=== PATIENT | female | born 1985 | race Caucasian/White ===

== ENCOUNTER 2023-08-04 17:00 | Inpatient (IN) | payer OTHER ==
[2023-08-04 18:33] VITALS: BMI 35.6
[2023-08-04 20:49] LABS: BASO % 0.5 % (0-2.0); EOS % 0.6 % (0-4.5); HEMATOCRIT 34.6 % (32.4-45.2); HEMOGLOBIN 11.2 GM/dL (10.7-15.3); LYMPH % 19.7 % (8-40); MCH 26.5 pg (25.7-33.7); MCHC 32.3 g/dl (32.0-36.0); MEAN CELL VOLUME 82.1 fl (80-96); MEAN PLT VOLUME 9.1 fl (7.5-11.1); MONO % 7.8 % (3.8-10.2); NEUT % 71.4 % (42.8-82.8); PLATELET COUNT 275 10^3/uL (134-434); RBC 4.22 M/mm3 (3.60-5.2); RDW 15.3 % (11.6-15.6); WHITE BLOOD COUNT 8.7 K/mm3 (4.0-10.0)
[2023-08-04] MEDS: LACTATED RINGERS SOLUTION 1,000 ML/1,000 ML INFUS.BAG IV SCH (21:00)
[2023-08-04 21:07] LABS: INR 1.11 (0.83-1.09); PROTHROMBIN TIME (PATIENT) 12.5 SEC (9.7-13.0)
[2023-08-04 21:10] LABS: ACTIVATED PTT 25.7 SECONDS (25.2-36.5)
[2023-08-04 21:13] LABS: POTASSIUM 3.9 mmol/L (3.5-5.1)
[2023-08-04 21:15] LABS: BLOOD UREA NITROGEN 7.5 mg/dL (7-18); CALCIUM 8.6 mg/dL (8.5-10.1)
[2023-08-04 21:19] LABS: CREATININE 0.6 mg/dL (0.55-1.3)
[2023-08-04] MEDS: DINOPROSTONE 10 MG VAGINAL SUPPOSITORY VG ONE (21:20)
[2023-08-05] MEDS ORDERED: PROMETHAZINE HCL 25 MG/1 ML VIAL ONE (04:29)
[2023-08-05] MEDS ORDERED: BUTORPHANOL TARTRATE 2 MG/ML VIAL ONE (04:29)
[2023-08-05] MEDS: PROMETHAZINE HCL 25 MG/1 ML VIAL IVPB ONE (04:35)
[2023-08-05] MEDS: BUTORPHANOL TARTRATE 2 MG/ML VIAL IVPB ONE (04:35)
[2023-08-05] MEDS ORDERED: OXYTOCIN 20 UNITS in 0.9% NS 20 UNIT/1,000 ML INFUS.BAG IV ONE (06:32)
[2023-08-05] MEDS: OXYTOCIN 20 UNITS in 0.9% NS 20 UNIT/1,000 ML INFUS.BAG IV SCH (07:00)
[2023-08-05 07:13] LABS: CORD BASE EXCESS -2.7 mmol/L (0-2); CORD HCO3 26.5 mmHg (20-29); CORD PCO2 62.5 mmHg (30-78); CORD pH 7.246 (7.14-7.44)
[2023-08-05 07:16] LABS: CORD BASE EXCESS -2.8 mmol/L (0-2); CORD PCO2 38.9 mmHg (30-78); CORD pH 7.371 (7.14-7.44)
[2023-08-05] MEDS ORDERED: WITCH HAZEL 50% (TUCKS) 40 PAD/JAR PAD TP PRN (07:41)
[2023-08-05] MEDS ORDERED: BISACODYL 10 MG SUPP.RECT RC PRN (07:41)
[2023-08-05] MEDS ORDERED: METHYLERGONOVINE MALEATE 0.2 MG/1 ML AMP IM PRN (07:41)
[2023-08-05] MEDS ORDERED: BENZOCAINE 28 GM HEMORRHOIDAL OINTMENT TP PRN (07:41)
[2023-08-05] MEDS ORDERED: BENZOCAINE 20% 57 GM BOTTLE TP PRN (07:41)
[2023-08-05] MEDS: IBUPROFEN 600 MG TABLET (FP) PO PRN (08:05)
[2023-08-05] MEDS: ACETAMINOPHEN 325 MG TABLET (FP) PO PRN (10:34)
[2023-08-05] MEDS: PRENATAL VITAMINS W/ FOLIC ACID TABLET (FP) PO SCH (10:34)
[2023-08-06 08:25] LABS: BASO % 0.5 % (0-2.0); EOS % 2.2 % (0-4.5); HEMATOCRIT 31.8 % (32.4-45.2); HEMOGLOBIN 10.3 GM/dL (10.7-15.3); LYMPH % 30.5 % (8-40); MCH 26.6 pg (25.7-33.7); MCHC 32.4 g/dl (32.0-36.0); MEAN CELL VOLUME 82.1 fl (80-96); MEAN PLT VOLUME 9.6 fl (7.5-11.1); NEUT % 60.8 % (42.8-82.8); PLATELET COUNT 239 10^3/uL (134-434); RBC 3.88 M/mm3 (3.60-5.2); RDW 15.3 % (11.6-15.6); WHITE BLOOD COUNT 7.9 K/mm3 (4.0-10.0)
[2023-08-06] MEDS: SENNOSIDES/DOCUSATE COMBO (SENNA PLUS) TABLET (UD) PO PRN (20:43)
[2023-08-07 12:38] VITALS: BP 120/80; PULSE 81; RESP 16; TEMP 98.1
== END 2023-08-07 17:12 | disposition home or self-care (01) | DRG 560 ==
LOC: JLDR 17:00 → J3W 08-05 09:50
PROVIDERS: ADMIT Obstetrics & Gynecology Obstetrics; ATTEND Obstetrics & Gynecology Obstetrics
PROC: 10E0XZZ Delivery of Products of Conception, External Approach (ICD-10-PCS; principal; 2023-08-05)
PROC: 0HQ9XZZ Repair Perineum Skin, External Approach (ICD-10-PCS; 2023-08-05)
PROC: 3E0P7VZ Introduction of Hormone into Female Reproductive, Via Natural or Artificial Opening (ICD-10-PCS; 2023-08-05)
PROC: 10907ZC Drainage of Amniotic Fluid, Therapeutic from Products of Conception, Via Natural or Artificial Opening (ICD-10-PCS; 2023-08-05)
DX: O48.0 Post-term pregnancy (principal); O70.0 First degree perineal laceration during delivery; Z3A.40 40 weeks gestation of pregnancy; Z37.0 Single live birth; O90.89 Other complications of the puerperium, not elsewhere classified; O87.0 Superficial thrombophlebitis in the puerperium; I80.01 Phlebitis and thrombophlebitis of superficial vessels of right lower extremity
CPT/HCPCS: 36415; 36600; 80048; 82803; 85025; 85610; 85730; 86780; 86850; 86900; 86901; 93970-TC